=== PATIENT | male | born 1990 | race Two or more races ===

== ENCOUNTER 2022-08-17 22:56 | Emergency (ER) | payer BC ==
[~2022-08-17] VITALS: Ht 185.4 cm; Wt 70.3 kg
[2022-08-18] MEDS ORDERED: TUSSI PRES-B L480 ML PO (14:13)
[2022-08-18] MEDS ORDERED: ZITHROMAX500 MG PO (14:13)
== END 2022-08-18 05:34 | disposition home or self-care (01) ==
LOC: ER 22:56
DX: J06.9 Acute upper respiratory infection, unspecified (principal); Z20.822 Contact with and (suspected) exposure to COVID-19

== ENCOUNTER 2022-08-18 10:42 | Emergency (ER) | payer BC ==
[~2022-08-18] VITALS: Ht 185.4 cm; Wt 70.3 kg
[2022-08-18] MEDS ORDERED: TUSSI PRES-B L480 ML PO (14:13)
[2022-08-18] MEDS ORDERED: ZITHROMAX500 MG PO (14:13)
== END 2022-08-18 14:23 | disposition home or self-care (01) ==
LOC: ER 10:42
DX: J06.9 Acute upper respiratory infection, unspecified (principal); Z20.822 Contact with and (suspected) exposure to COVID-19